=== PATIENT | male | born 1995 | race Caucasian/White ===

== ENCOUNTER 2021-05-15 22:01 | Emergency (ER) | payer BC ==
[2021-05-15] MEDS: Lidocaine 1% 10 ML MDV INJECT ONE (22:20)
[2021-05-15] MEDS: Diphtheria,Pertussis(Acell),Tetanus Vaccine 0.5 ML SDV IM ONE (22:40)
[2021-05-15] MEDS ORDERED: Cephalexin 250 MG Cap ONE (22:50)
--- NOTE | 2021-05-16 07:10 | ER ---
HPI: A 26-year-old male who comes in with a laceration to the dorsal aspect of the 4th and 5th fingers on the left hand. This happened while he was handling a large fish. He states it was a 41-inch [place]. He was lifting it with his hand in the Go plate, when the fish flopped cutting his fingers. The patient did [place] some first aid [place] and was told to come in for further evaluation. The patient states that he otherwise is healthy. He is not allergic to any antibiotics and denies any numbness or tingling distal to the lacerations on the fingers. OBJECTIVE: GENERAL APPEARANCE: The patient is awake and alert. No obvious distress. Examining the left hand reveals 2 transverse lacerations across the dorsal aspect of the proximal fingers just distal to the base. The lacerations are slanted. He has good flexion and extension capability and good strength against resistance with flexion and extension of both of the injured fingers. DIAGNOSIS: Laceration to fingers. TREATMENT PLAN: The sites were cleansed with a sterile water and cleansing solution, after which, I anesthetized the area using 1% lidocaine locally, about 3 mL were you used for both lacerations. Then, a sterile field was acquired, and I sutured the lacerations, it required 5 sutures on the 4th finger and 4 on the 5th finger. They both measured approximately 2 cm in length. Nursing staff then cleansed the area and will apply dressings. The patient, he has a ring on the 4th finger, it is not tight. The knuckle area is slightly swollen. We were unable to get the ring off. The patient declined having a cut off stating that it is not fitting tight and I advised him to keep his hand elevated and apply ice frequently for until he goes to sleep tonight, and if it becomes more of an issue, he needs to come back in and have the ring cut off. He will be given a tetanus shot tonight. I will also put him on Keflex 500 mg b.i.d. for 3 days. Activity should be as tolerated. He is to change the dressings once a day for 2 or 3 days and then it should be left open to air and the sutures should come out in 8-10 days. CRS/MODL /[id number]
== END 2021-05-15 23:02 | disposition home or self-care (01) ==
LOC: LB.ED 22:01
DX: S61.215A Laceration without foreign body of left ring finger without damage to nail, initial encounter (principal); S61.217A Laceration without foreign body of left little finger without damage to nail, initial encounter; Z23 Encounter for immunization; W26.8XXA Contact with other sharp object(s), not elsewhere classified, initial encounter
CPT/HCPCS: 12001; 90715; 99282-25; A9270-GY